=== PATIENT | male | born 1990 | race Caucasian/White ===

== ENCOUNTER 2017-02-22 11:07 | Emergency (ER) | payer SELFPAY ==
[~2017-02-22] VITALS: Ht 177.8 cm; Wt 63.2 kg
--- NOTE | 2017-02-22 11:13 | PD ---
HPI Chief Complaint: Dental Pain Time Seen by Provider: 11:13 Travel History International Travel<30 days: No Contact w/Intl Traveler<30days: No History of Present Illness HPI 25-year-old male presents very Department with 3 day history of right lower jaw pain and swelling secondary to severe caries of the #30, 31, and 32 teeth. Patient denies difficulty swallowing, fever, chills, or other symptoms. She has been taking [id number] ibuprofen without improvement. He has no current dentist. He has no other symptoms. He has no known drug allergies. [facility] Social History Alcohol Use: Yes Tobacco Use: Yes Substance Use: No Allergies-Medications (Allergen,Severity, Reaction): Coded Allergies: No Known Allergies (Unverified , 02/22/17) Reported Meds & Prescriptions Reported Meds & Active Scripts Active No Active Prescriptions or Reported Medications Review of Systems Except as stated in HPI: all other systems reviewed are Neg General / Constitutional: No: Fever Eyes: No: Visual changes HENT: Positive: Dental Difficulties, No: Headaches, Sore Throat, Rhinitis, Rhinorrhea, Congestion, Nosebleed, Neck Stiffness, Neck Pain, Gingival Bleeding , Earache Cardiovascular: No: Chest Pain or Discomfort Respiratory: No: Shortness of Breath Gastrointestinal: No: Abdominal Pain Genitourinary: No: Dysuria Musculoskeletal: No: Pain Skin: No Rash Neurologic: No: Weakness Psychiatric: No: Depression Endocrine: No: Polydipsia Hematologic/Lymphatic: No: Easy Bruising Physical Exam Narrative GENERAL: Patient appears in mild distress. SKIN: Warm and dry. Normal color. Normal turgor. No erythema. HEAD: Atraumatic. Normocephalic. EYES: Pupils equal and round. No scleral icterus. No injection or drainage. ENT: No nasal bleeding or discharge. Mucous membranes pink and moist. Teeth are in very poor repair throughout. Pharynx is normal. Airway is patent. Uvula is midline. No significant lymphadenopathy. No signs of Agustin's angina. TMs are clear bilaterally. Patient has moderate swelling along the right lower jawline consistent with dental abscess. NECK: Trachea midline. No JVD. Supple nontender without significant lymphadenopathy. CARDIOVASCULAR: Regular rate and rhythm. RESPIRATORY: No accessory muscle use. Clear to auscultation. Breath sounds equal bilaterally. MUSCULOSKELETAL: Extremities without clubbing, cyanosis, or edema. No obvious deformities. NEUROLOGICAL: Awake and alert. No obvious cranial nerve deficits. Motor grossly within normal limits. Five out of 5 muscle strength in the arms and legs. Normal speech. PSYCHIATRIC: Appropriate mood and affect; insight and judgment normal. [facility] Medical Decision Making Medical Screen Exam Complete: Yes Emergency Medical Condition: Yes Differential Diagnosis Dental caries. Dental abscess. Dental pain. Narrative Course Patient is medically stable at time of exam. Patient will be treated with penicillin VK. 500 mg 4 times a day 10 days. Patient also given ibuprofen 800 mg 3 times daily with food #30. Patient is also take acetaminophen 500 mg 2 tabs 3 times daily #60. Patient is using hot compresses followed by ice frequently. Patient is given information regarding local dental resources. Patient is given a work note. Patient can follow up if symptoms do not improve or worsen as discussed. Diagnosis Primary Impression: Dental abscess Referrals: Dentist Patient Instructions: Dental Abscess (ED), Dental Caries (ED), General Instructions Additional Instructions: Patient will be treated with penicillin VK. 500 mg 4 times a day 10 days. Patient also given ibuprofen 800 mg 3 times daily with food #30. Patient is also take acetaminophen 500 mg 2 tabs 3 times daily #60. Patient is using hot compresses followed by ice frequently. Patient is given information regarding local dental resources. Patient is given a work note. Patient can follow up if symptoms do not improve or worsen as discussed. Med/Other Pt SpecificInfo: Prescription(s) given Scripts Penicillin V Potassium 500 Mg [id number] Mg PO Q6H 10 Days Prov:Tanmay John MD 02/22/17 Ibuprofen 800 Mg [id number] Mg PO Q8H PRN (Pain/Inflammation) #30 TAB Prov:Tanmay John MD 02/22/17 Acetaminophen (Non-Aspirin Pain Relief ES)500 Mg [id number] Mg PO Q6HR PRN (PAIN) # 60 TAB Prov:Tanmay John MD 02/22/17 Disposition: 01 DISCHARGE HOME Condition: Stable Grabiel Sosa Feb 22, 2017 11:13
[2017-02-22] MEDS ORDERED: PENI500T PO (11:20)
[2017-02-22] MEDS ORDERED: NON-500T13 PO (11:20)
[2017-02-22] MEDS ORDERED: IBUP800T23 PO (11:20)
== END 2017-02-22 11:42 | disposition home or self-care (01) ==
LOC: PHEFT 11:07
DX: K04.7 Periapical abscess without sinus (principal); Z72.0 Tobacco use
CPT/HCPCS: 99283

== ENCOUNTER 2017-05-26 17:38 | Emergency (ER) | payer SELFPAY ==
[~2017-05-26 17:38] MED LIST: IBUP1TAB7 PO; NON-500T13 PO; PENI500T PO
[2017-05-26 17:44] VITALS: BP 110/55; PULSE 70; RESP 20; TEMP 97.9; O2SAT 95
[2017-05-26 18:26] VITALS: BP 110/53; PULSE 70; RESP 16; O2SAT 96
[2017-05-26] MEDS ORDERED: SODIUM CHLOR 0.9% 1000 ML INJ 1,000 ML IV SCH (18:36)
[2017-05-26 18:38] VITALS: O2SAT 96
--- NOTE | 2017-05-26 18:38 | PD ---
HPI Chief Complaint: Chest Pain Time Seen by Provider: 18:36 Travel History International Travel<30 days: No Contact w/Intl Traveler<30days: No Traveled to known affect area: No History of Present Illness HPI 26-year-old male patient presents to the ER today for 5 days history of epigastric and substernal chest discomfort which she states is sharp and intermittent in nature. He has had intermittent nausea and vomiting, and symptoms seems to worsen with food intake. He states that it can be a 9 out of 10 at times. He denies any fevers, shortness of breath, or any other symptoms. Modifying Factors: None Associated Signs & Symptoms: Epigastric and chest pains, nausea and vomiting intermittently Risk Factors: None PFSH Past Surgical History Genitourinary Surgery: Yes (UNDESCENDED TESTICLE A CHILD) Social History Alcohol Use: Yes Tobacco Use: Yes (3/4PPD) Substance Use: No Allergies-Medications (Allergen,Severity, Reaction): Coded Allergies: No Known Allergies (Unverified , 05/26/17) Reported Meds & Prescriptions Reported Meds & Active Scripts Active No Active Prescriptions or Reported Medications Review of Systems Except as stated in HPI: all other systems reviewed are Neg Physical Exam Narrative GENERAL: Well-developed young male patient currently none acute distress. Awake and oriented 3. SKIN: Focused skin assessment warm/dry. HEAD: Atraumatic. Normocephalic. EYES: Pupils equal and round. No scleral icterus. No injection or drainage. ENT: No nasal bleeding or discharge. Mucous membranes pink and moist. NECK: Trachea midline. No JVD. CARDIOVASCULAR: Regular rate and rhythm. No murmur appreciated. RESPIRATORY: No accessory muscle use. Clear to auscultation. Breath sounds equal bilaterally. GASTROINTESTINAL: Abdomen soft, non-tender, nondistended. Hepatic and splenic margins not palpable. Benign. MUSCULOSKELETAL: No obvious deformities. No clubbing. No cyanosis. No edema. NEUROLOGICAL: Awake and alert. No obvious cranial nerve deficits. Motor grossly within normal limits. Normal speech. PSYCHIATRIC: Appropriate mood and affect; insight and judgment normal. Data Data Last Documented VS Vital Signs Date Time Temp Pulse Resp B/P (MAP) Pulse Ox O2 Delivery O2 Flow Rate FiO2 05/26/17 18:38 96 Room Air 05/26/17 18:26 70 16 05/26/17 17:44 97.9 Orders Orders Electrocardiogram (10/26/17 17:53) Complete Blood Count With Diff (05/26/17 18:36) Comprehensive Metabolic Panel (05/26/17 18:36) Lipase (05/26/17 18:36) Iv Access Insert/Monitor (05/26/17 18:36) Ecg Monitoring (05/26/17 18:36) Oximetry (05/26/17 18:36) Ondansetron Inj (Zofran Inj) (05/26/17 18:45) Sodium Chlor 0.9% 1000 Ml Inj (Ns 1000 M (05/26/17 18:36) Sodium Chloride 0.9% Flush (Ns Flush) (05/26/17 18:45) Chest, Single Ap (05/26/17 18:36) Famotidine Inj (Pepcid Inj) (05/26/17 18:45) Al-Mag Hy-Si 40-40-4 Mg/Ml Liq (Mag-Al P (05/26/17 18:45) Lidocaine 2% Viscous (Xylocaine 2% Visco (05/26/17 18:45) Labs Laboratory Tests Test 05/26/17 18:30 White Blood Count 7.4 TH/MM3 Red Blood Count 4.19 MIL/MM3 Hemoglobin 12.4 GM/DL Hematocrit 36.2 % Mean Corpuscular Volume 86.4 FL Mean Corpuscular Hemoglobin 29.5 PG Mean Corpuscular Hemoglobin Concent 34.1 % Red Cell Distribution Width 12.9 % Platelet Count 207 TH/MM3 Mean Platelet Volume 8.1 FL Neutrophils (%) (Auto) 48.7 % Lymphocytes (%) (Auto) 42.1 % Monocytes (%) (Auto) 5.2 % Eosinophils (%) (Auto) 3.5 % Basophils (%) (Auto) 0.5 % Neutrophils # (Auto) 3.6 TH/MM3 Lymphocytes # (Auto) 3.1 TH/MM3 Monocytes # (Auto) 0.4 TH/MM3 Eosinophils # (Auto) 0.3 TH/MM3 Basophils # (Auto) 0.0 TH/MM3 CBC Comment DIFF FINAL Differential Comment Blood Urea Nitrogen 10 MG/DL Creatinine 0.77 MG/DL Random Glucose 117 MG/DL Total Protein 7.7 GM/DL Albumin 3.6 GM/DL Calcium Level 8.6 MG/DL Aspartate Amino Transf (AST/SGOT) 31 U/L Alanine Aminotransferase (ALT/SGPT) 46 U/L Total Bilirubin 0.3 MG/DL Sodium Level 138 MEQ/L Potassium Level 4.3 MEQ/L Chloride Level 104 MEQ/L Carbon Dioxide Level 29.8 MEQ/L Anion Gap 4 MEQ/L Estimat Glomerular Filtration Rate 124 ML/MIN Lipase 82 U/L MDM Medical Decision Making Medical Screen Exam Complete: Yes Emergency Medical Condition: Yes Medical Record Reviewed: Yes Interpretation(s) EKG shows NSR, no ST elevation or depression, and no arrhythmias. No significant T-wave inversions. Laboratory Tests Test 05/26/17 18:30 Red Blood Count 4.19 MIL/MM3 (4.50-5.90) Hemoglobin 12.4 GM/DL (13.0-17.0) Hematocrit 36.2 % (39.0-51.0) Random Glucose 117 MG/DL (74-106) Anion Gap 4 MEQ/L (5-15) Differential Diagnosis Gastritis versus gastroenteritis versus pancreatitis versus ACS versus dysrhythmias Narrative Course Abdomen is benign and not suspecting acute intra-abdominal process. He was given GI cocktail and Zantac in the ER. Lab work did not show any signs of pancreatitis or other acute abnormalities. EKG did not show dysrhythmias or any ST changes. Chest x-ray has been ordered and is pending. Physician Communication Physician Communication Case signed out to Dr. Rowland at 7 PM pending chest x-ray. Disposition based on chest x-ray. Diagnosis Primary Impression: Abdominal pain Scripts No Active Prescriptions or Reported Meds Condition: Stable JayaKate franco MD May 26, 2017 18:38
[2017-05-26 18:45] LABS: AUTOMATED NEUTROPHIL # 3.6 TH/MM3 (1.8-7.7); BASOPHIL % 0.5 % (0.0-2.0); EOSINOPHIL # 0.3 TH/MM3 (0-0.4); EOSINOPHIL % 3.5 % (0.0-4.0); HEMATOCRIT 36.2 % (39.0-51.0); HEMOGLOBIN 12.4 GM/DL (13.0-17.0); LYMPH % 42.1 % (9.0-44.0); LYMPHOCYTE # 3.1 TH/MM3 (1.0-4.8); MEAN CELL VOLUME 86.4 FL (80.0-100.0); MEAN CORPUSCULAR HEMOGLOBIN 29.5 PG (27.0-34.0); MEAN CORPUSCULAR HGB CONC 34.1 % (32.0-36.0); MEAN PLATELET VOLUME 8.1 FL (7.0-11.0); MONO % 5.2 % (0.0-8.0); MONOCYTE # 0.4 TH/MM3 (0-0.9); NEUT % 48.7 % (16.0-70.0); PLATELET COUNT 207 TH/MM3 (150-450); RED BLOOD COUNT 4.19 MIL/MM3 (4.50-5.90); RED CELL DISTRIBUTION WIDTH 12.9 % (11.6-17.2); WHITE BLOOD COUNT 7.4 TH/MM3 (4.0-11.0)
[2017-05-26] MEDS ORDERED: LIDOCAINE VISCOUS 2% SOLN 15 ML UDC PO ONE (18:45)
[2017-05-26] MEDS ORDERED: SODIUM CHLORIDE 0.9% FLUSH 10 ML FLUSH IV FLUSH PRN (18:45)
[2017-05-26] MEDS ORDERED: ONDANSETRON HCL 4 MG/2 ML VIAL IVP ONE (18:45)
[2017-05-26] MEDS ORDERED: ALUMINUM/MAGNESIUM/SIMETH 30 ML CUP PO ONE (18:45)
[2017-05-26] MEDS ORDERED: FAMOTIDINE 20 MG/2 ML VIAL IV PUSH ONE (18:45)
[2017-05-26 18:53] LABS: CHLORIDE 104 MEQ/L (98-107); SODIUM (NA) 138 MEQ/L (136-145)
[2017-05-26 18:56] LABS: ALBUMIN 3.6 GM/DL (3.4-5.0); CALCIUM 8.6 MG/DL (8.5-10.1); LIPASE 82 U/L (73-393)
[2017-05-26 18:57] LABS: BICARBONATE 29.8 MEQ/L (21.0-32.0); BLOOD UREA NITROGEN 10 MG/DL (7-18); GLUCOSE,RANDOM 117 MG/DL (74-106)
[2017-05-26 18:59] LABS: ALT (GPT) 46 U/L (12-78)
[2017-05-26 19:00] LABS: AST (GOT) 31 U/L (15-37); CREATININE 0.77 MG/DL (0.60-1.30); GLOMERULAR FILTRATION RATE 124 ML/MIN (>89)
[2017-05-26 19:01] LABS: TOTAL BILIRUBIN ADULT 0.3 MG/DL (0.2-1.0); TOTAL PROTEIN 7.7 GM/DL (6.4-8.2)
[2017-05-26 19:02] LABS: ALKALINE PHOSPHATASE 86 U/L (45-117)
[2017-05-26 19:34] VITALS: BP 97/42; PULSE 49; RESP 16; O2SAT 99
--- NOTE | 2017-05-26 19:57 | PD ---
Physical Exam Date Seen by Provider: May 26, 2017 Time Seen by Provider: 19:15 Narrative Accepted in transfer of care from Dr. Ayala GENERAL: Well-developed well-nourished male in acute distress no respiratory distress SKIN: Warm and dry. CARDIOVASCULAR: Regular rate and rhythm without murmurs, gallops, or rubs. RESPIRATORY: Breath sounds equal bilaterally. No accessory muscle use. GASTROINTESTINAL: Abdomen soft, non-tender, nondistended. Data Data Last Documented VS Vital Signs Date Time Temp Pulse Resp B/P (MAP) Pulse Ox O2 Delivery O2 Flow Rate FiO2 05/26/17 19:34 49 16 97/42 (60) 99 05/26/17 18:38 Room Air 05/26/17 17:44 97.9 Orders Orders Electrocardiogram (05/26/17 17:53) Complete Blood Count With Diff (05/26/17 18:36) Comprehensive Metabolic Panel (05/26/17 18:36) Lipase (05/26/17 18:36) Iv Access Insert/Monitor (05/26/17 18:36) Ecg Monitoring (05/26/17 18:36) Oximetry (05/26/17 18:36) Ondansetron Inj (Zofran Inj) (05/26/17 18:45) Sodium Chlor 0.9% 1000 Ml Inj (Ns 1000 M (05/26/17 18:36) Sodium Chloride 0.9% Flush (Ns Flush) (05/26/17 18:45) Chest, Single Ap (05/26/17 18:36) Famotidine Inj (Pepcid Inj) (05/26/17 18:45) Al-Mag Hy-Si 40-40-4 Mg/Ml Liq (Mag-Al P (05/26/17 18:45) Lidocaine 2% Viscous (Xylocaine 2% Visco (05/26/17 18:45) Ed Discharge Order (05/26/17 20:49) Labs Laboratory Tests Test 05/26/17 18:30 White Blood Count 7.4 TH/MM3 Red Blood Count 4.19 MIL/MM3 Hemoglobin 12.4 GM/DL Hematocrit 36.2 % Mean Corpuscular Volume 86.4 FL Mean Corpuscular Hemoglobin 29.5 PG Mean Corpuscular Hemoglobin Concent 34.1 % Red Cell Distribution Width 12.9 % Platelet Count 207 TH/MM3 Mean Platelet Volume 8.1 FL Neutrophils (%) (Auto) 48.7 % Lymphocytes (%) (Auto) 42.1 % Monocytes (%) (Auto) 5.2 % Eosinophils (%) (Auto) 3.5 % Basophils (%) (Auto) 0.5 % Neutrophils # (Auto) 3.6 TH/MM3 Lymphocytes # (Auto) 3.1 TH/MM3 Monocytes # (Auto) 0.4 TH/MM3 Eosinophils # (Auto) 0.3 TH/MM3 Basophils # (Auto) 0.0 TH/MM3 CBC Comment DIFF FINAL Differential Comment Blood Urea Nitrogen 10 MG/DL Creatinine 0.77 MG/DL Random Glucose 117 MG/DL Total Protein 7.7 GM/DL Albumin 3.6 GM/DL Calcium Level 8.6 MG/DL Alkaline Phosphatase 86 U/L Aspartate Amino Transf (AST/SGOT) 31 U/L Alanine Aminotransferase (ALT/SGPT) 46 U/L Total Bilirubin 0.3 MG/DL Sodium Level 138 MEQ/L Potassium Level 4.3 MEQ/L Chloride Level 104 MEQ/L Carbon Dioxide Level 29.8 MEQ/L Anion Gap 4 MEQ/L Estimat Glomerular Filtration Rate 124 ML/MIN Lipase 82 U/L MDM Medical Record Reviewed: Yes Supervised Visit with FIOR: No Interpretation(s) Chest x-ray: No acute abnormalities no subdiaphragmatic free air CBC & BMP Diagram 05/26/17 18:30 Total Protein 7.7, Albumin 3.6, Calcium Level 8.6, Alkaline Phosphatase 86, Aspartate Amino Transf (AST/SGOT) 31, Alanine Aminotransferase (ALT/SGPT) 46, Total Bilirubin 0.3 Vital Signs Date Time Temp Pulse Resp B/P (MAP) Pulse Ox O2 Delivery O2 Flow Rate FiO2 05/26/17 19:34 49 16 97/42 (60) 99 05/26/17 18:38 96 Room Air 05/26/17 18:26 70 16 110/53 (72) 96 Room Air 05/26/17 17:44 97.9 70 20 110/55 (73) 95 Differential Diagnosis Accepted in transfer of care from Dr. Ayala; please refer to her dictation Narrative Course Accepted in transfer of care from Dr. Ayala; follow up on pending CXR and disposition On examination abdomen is soft nontender no guarding or rebound Patient able to tolerate oral hydration well and is stable for outpatient management chest x-ray reveals no acute abnormality; patient informed of results. Diagnosis Primary Impression: Abdominal pain Referrals: Transmission And Coordination Engineer as needed Primary Care Physician call for appointment Patient Instructions: General Instructions Departure Forms: Tests/Procedures, Work Release Special Instructions: no work x 1 day Additional Instruction: Increase fluid hydration Follow clear liquid diet times 12-24 hrs. advance as tolerated to bland/Barb diet then regular diet avoiding fried and fatty foods Follow-up with your primary care provider or clinic Follow-up with GI doctor as needed Takes Zantac 150 twice daily for 14 days Avoid nonsteroidal anti-inflammatory medications such as aspirin Advil Motrin ibuprofen and Aleve or Naprosyn or naproxen Med/Other Pt SpecificInfo: Prescription(s) given Scripts Ondansetron Odt (Zofran Odt) 4 Mg Tab 4 MG SL Q6HR Y for Nausea/Vomiting, #10 TAB 0 Refills Prov: Delphine Rowland MD 05/26/17 Disposition: 01 DISCHARGE HOME Condition: Stable Delphine Rowland MD May 26, 2017 19:57
--- NOTE | 2017-05-26 20:44 | RADRPT ---
EXAM DATE/TIME: 05/26/2017 19:40 [place] COMPARISON: No previous studies available for comparison. INDICATIONS : Chest pain for a week. MEDICAL HISTORY : None. SURGICAL HISTORY : None. ENCOUNTER: Initial ACUITY: 1 week PAIN SCORE: 7/10 LOCATION: Left chest FINDINGS: A single view of the chest demonstrates the lungs to be symmetrically aerated without evidence of mas s, infiltrate or effusion. The cardiomediastinal contours are unremarkable. Osseous structures are intact. CONCLUSION: No acute disease. Riley Paulino MD on May 26, 2017 at 20:42 Board Certified Radiologist. This report was verified electronically.
[2017-05-26] MEDS ORDERED: ZOFR4TAB3 SL (20:51)
--- NOTE | 2017-05-26 23:06 | EKG ---
Date Performed: 05/26/2017 Time Performed: 17:53:34 PTAGE: 26 years EKG: SINUS BRADYCARDIA BORDERLINE ECG NO PREVIOUS TRACING DOCTOR: Rajat John Interpretating Date/Time 05/26/2017 23:04:17
--- NOTE | 2017-05-26 23:06 | EKG ---
Date Performed: 05/26/2017 Time Performed: 17:53:34 PTAGE: 26 years EKG: SINUS BRADYCARDIA BORDERLINE ECG NO PREVIOUS TRACING DOCTOR: Rajat John Interpretating Date/Time 05/26/2017 23:04:17
--- NOTE | 2017-05-26 23:06 | EKG ---
Date Performed: 05/26/2017 Time Performed: 17:53:34 PTAGE: 26 years EKG: SINUS BRADYCARDIA BORDERLINE ECG NO PREVIOUS TRACING DOCTOR: Rajat John Interpretating Date/Time 05/26/2017 23:04:17
== END 2017-05-26 23:35 | disposition home or self-care (01) ==
LOC: PHED 17:38
DX: R10.9 Unspecified abdominal pain (principal); R11.2 Nausea with vomiting, unspecified; F17.200 Nicotine dependence, unspecified, uncomplicated
CPT/HCPCS: 71010; 80053; 83690; 85025; 93005; 96361; 96374; 96375; 99285; J2405; J7030

== ENCOUNTER 2017-10-13 22:09 | Emergency (ER) | payer SELFPAY ==
[~2017-10-13] VITALS: Ht 177.8 cm; Wt 61.1 kg
[~2017-10-13 22:09] MED LIST changes: -IBUP1TAB7 PO; -NON-500T13 PO; -PENI500T PO; +ZOFR4TAB3 SL
[2017-10-13 22:37] VITALS: BP 139/64; PULSE 80; RESP 14; TEMP 97.8; O2SAT 96
== END 2017-10-13 23:52 | disposition left against medical advice (07) ==
LOC: PHED 22:09
DX: Z53.21 Procedure and treatment not carried out due to patient leaving prior to being seen by health care provider (principal)